=== PATIENT | female | born 1950 | race Caucasian/White ===

== ENCOUNTER → 2017-05-30 | Outpatient (CLI) | payer OTHER, BC ==
[~2017-05-30] VITALS: Ht 157.5 cm; Wt 59.1 kg
[~2017-05-30] MED LIST: CALCIUM ACETAT667 MG PO; CINNAMON500 MG PO; CRANBERRY500 M2 PO; CULTURELLE CAP1 EACH PO; GARLIC OIL1000 MG PO; MAGNESIUM400 M1 PO; NO MEDS; OSTEO BI-FLEX1 EAC1 PO; POTASSIUM-9999 MG PO; VITAMIN E400 UNIT PO; VOL-CARE RX TA1 EACH PO
== END | disposition home or self-care (01) ==
LOC: AMB 13:00
PROC: 0DJD8ZZ Inspection of Lower Intestinal Tract, Via Natural or Artificial Opening Endoscopic (ICD-10-PCS; principal; 2017-05-30)
DX: K57.90 Diverticulosis of intestine, part unspecified, without perforation or abscess without bleeding (principal); K59.00 Constipation, unspecified; K92.1 Melena; Z88.0 Allergy status to penicillin; Z86.010 Personal history of colon polyps; J45.909 Unspecified asthma, uncomplicated; R11.2 Nausea with vomiting, unspecified